=== PATIENT | female | born 1995 | race Caucasian/White ===

== ENCOUNTER 2019-06-09 10:03 | Emergency (ER) | payer OTHER ==
[~2019-06-09] VITALS: Ht 160 cm; Wt 63.5 kg
[2019-06-09] MEDS ORDERED: [UNRECOGNIZED DRUG - OTHER] PO (10:30)
[2019-06-09] MEDS ORDERED: IBUP800 PO (11:20)
[2019-06-09] MEDS ORDERED: HYDR1TAB94 PO (11:20)
[2019-06-09] MEDS ORDERED: CYCL10 PO (11:20)
== END 2019-06-09 11:44 | disposition home or self-care (01) ==
LOC: ER 10:03
DX: M54.5 Low back pain (principal); W11.XXXA Fall on and from ladder, initial encounter
CPT/HCPCS: 72100; 99283-25

== ENCOUNTER 2019-08-26 15:56 | Emergency (ER) | payer OTHER ==
[~2019-08-26] VITALS: Ht 160 cm; Wt 68.0 kg
[~2019-08-26 15:56] MED LIST: CYCL10 PO; HYDR1TAB94 PO; IBUP800 PO; [UNRECOGNIZED DRUG - OTHER] PO
[2019-08-26] MEDS ORDERED: CYCL10 PO (16:03)
[2019-08-26] MEDS ORDERED: Zanaflex4 MG PO (16:04)
[2019-08-26] MEDS ORDERED: Robaxin750 MG PO (16:04)
[2019-08-26] MEDS ORDERED: BUPR150ER PO (16:05)
[2019-08-26] MEDS ORDERED: KETO10 PO (17:18)
== END 2019-08-26 17:33 | disposition home or self-care (01) ==
LOC: ER 15:56
DX: S30.0XXA Contusion of lower back and pelvis, initial encounter (principal); W19.XXXA Unspecified fall, initial encounter
CPT/HCPCS: 72100; 96372; 99283-25; J1885

== ENCOUNTER 2019-12-16 19:09 | Emergency (ER) | payer OTHER ==
[~2019-12-16 19:09] MED LIST changes: +BUPR150ER PO; +KETO10 PO; +Robaxin750 MG PO; +Zanaflex4 MG PO
== END 2019-12-16 20:00 | disposition left against medical advice (07) ==
LOC: ER 19:09
DX: Z53.21 Procedure and treatment not carried out due to patient leaving prior to being seen by health care provider (principal)

== ENCOUNTER 2020-02-29 11:26 | Emergency (ER) | payer OTHER ==
[~2020-02-29] VITALS: Ht 157.5 cm; Wt 59.0 kg
[2020-02-29] MEDS ORDERED: BUPROPION XL150 M1 PO (12:03)
[2020-02-29] MEDS ORDERED: TIZA4 PO (12:04)
[2020-02-29] MEDS ORDERED: OXYC10TA19 PO (12:05)
[2020-02-29] MEDS ORDERED: CLON.1 PO (12:06)
[2020-02-29] MEDS ORDERED: SUBOXONE 8 MG-1 EACH SL (12:06)
[2020-02-29 12:14] LABS: Source, Urine Clean Catch
[2020-02-29 12:29] LABS: Appearance, Urine Hazy (Clear); Blood, Urine 4+ (Neg); Glucose Qualitative, Urine Neg (Neg); Ketones, Urine Neg (Neg); Leukocyte Esterase, Urine 2+ (Neg); Nitrite, Urine Pos (Neg); Protein, Urine 3+ (Neg); Urobilinogen, Urine 3+ (Normal)
[2020-02-29 12:42] LABS: Bilirubin, Urine 3+ (Neg)
[2020-02-29 12:43] LABS: Color, Urine Amber (P-Yellow)
[2020-02-29 12:45] LABS: Bacteria Many /hpf; Squamous Epithelial Cells Mod /hpf (Few); White Blood Cells, Urine 50-100 /hpf (0-5)
[2020-02-29 12:46] LABS: Granular Casts 0-2 /lpf (0)
== END 2020-02-29 12:50 | disposition left against medical advice (07) ==
LOC: ER 11:26
PROVIDERS: Physician Assistant
DX: N12 Tubulo-interstitial nephritis, not specified as acute or chronic (principal); Z20.828 Contact with and (suspected) exposure to other viral communicable diseases; Z79.899 Other long term (current) drug therapy
CPT/HCPCS: 81001; 81025; 87077; 87086; 87186; 99283; U0003

== ENCOUNTER 2020-03-01 20:38 | Inpatient (IN) | payer OTHER ==
[~2020-03-01] VITALS: Ht 157.5 cm; Wt 67.0 kg
[~2020-03-01 20:38] MED LIST changes: +BUPROPION XL150 M1 PO; +CLON.1 PO; +OXYC10TA19 PO; +SUBOXONE 8 MG-1 EACH SL; +TIZA4 PO
[2020-03-01 22:02] LABS: BASOPHILS ABSOLUTE AUTO 0.03 K/mm3 (0.00-0.23); BASOPHILS PERCENT AUTO 0 % (0-2); EOSINOPHILS ABSOLUTE AUTO 0.01 K/mm3 (0.00-0.68); EOSINOPHILS PERCENT AUTO 0 % (0-6); Hemoglobin 11.6 g/dL (11.5-16.0); IMMATURE GRAN ABSOLUTE AUTO 0.13 K/mm3 (0.00-0.10); IMMATURE GRAN PERCENT AUTO 1 % (0-1); LYMPHOCYTES ABSOLUTE AUTO 0.99 K/mm3 (0.84-5.20); LYMPHOCYTES PERCENT AUTO 7 % (21-46); MONOCYTES ABSOLUTE AUTO 1.21 K/mm3 (0.16-1.47); MONOCYTES PERCENT AUTO 8 % (4-13); Mean Corpuscular HGB 30.1 pg (26.0-34.0); Mean Corpuscular HGB Conc 34.1 g/dL (31.5-36.5); Mean Corpuscular Volume 88 fL (80-100); NEUTROPHILS ABSOLUTE AUTO 12.14 K/mm3 (1.96-9.15); NEUTROPHILS PERCENT AUTO 84 % (41-73); RDW Coefficient Variation 12.1 % (11.7-14.2); RDW Standard Deviation 38.9 fL (35.1-46.3); Red Blood Cell Count 3.86 M/mm3 (3.80-5.20); White Blood Cell Count 14.51 K/mm3 (4.00-11.30)
[2020-03-01 22:03] LABS: Mean Platelet Volume 10.9 fL (9.1-12.4); Platelet Count 191 K/mm3 (150-400)
[2020-03-01 22:17] LABS: Alanine Aminotransfer (ALT/SGP 42 U/L (12-78); Albumin, Blood 3.1 g/dL (3.4-5.0); Albumin/Globulin Ratio 0.6 (0.8-1.8); Alk Phos 105 U/L (50-136); Anion Gap 11 mmol/L (6-16); Aspartate Aminotrans (AST/SGOT 58 U/L (12-37); Bilirubin, Total 0.7 mg/dL (0.1-1.0); Blood Urea Nitrogen 11 mg/dL (8-24); Bun/Creatinine Ratio 18.2 (12.0-20.0); CO2, Blood 24 mmol/L (21-32); Calcium, Blood 9.4 mg/dL (8.5-10.1); Chloride, Blood 100 mmol/L (98-108); Glomerular Filtration Rate >60 (60-); Glucose, Blood 128 mg/dL (70-99); Sodium, Blood 135 mmol/L (136-145); Total Protein, Blood 8.1 g/dL (6.4-8.2)
[2020-03-01 22:56] LABS: Source, Urine Clean Catch
[2020-03-01 23:03] LABS: Blood, Urine 4+ (Neg); Glucose Qualitative, Urine Neg (Neg); Ketones, Urine 4+ (Neg); Leukocyte Esterase, Urine 1+ (Neg); Nitrite, Urine Neg (Neg); Protein, Urine 4+ (Neg); Urobilinogen, Urine 3+ (Normal); pH, Urine 6.5 (5.0-8.0)
[2020-03-01 23:05] LABS: Appearance, Urine Hazy (Clear); Bilirubin, Urine 1+ (Neg); Color, Urine Amber (P-Yellow)
[2020-03-01 23:10] LABS: Amorphous Light (0-Heavy); Bacteria Mod /hpf; Mucus Light (0-Heavy); Squamous Epithelial Cells Few /hpf (Few); White Blood Cells, Urine 25-50 /hpf (0-5)
[2020-03-02 04:28] LABS: BASOPHILS ABSOLUTE AUTO 0.03 K/mm3 (0.00-0.23); BASOPHILS PERCENT AUTO 0 % (0-2); EOSINOPHILS ABSOLUTE AUTO 0.01 K/mm3 (0.00-0.68); EOSINOPHILS PERCENT AUTO 0 % (0-6); Hematocrit 27.9 % (33.0-51.0); Hemoglobin 9.1 g/dL (11.5-16.0); IMMATURE GRAN ABSOLUTE AUTO 0.27 K/mm3 (0.00-0.10); IMMATURE GRAN PERCENT AUTO 2 % (0-1); LYMPHOCYTES ABSOLUTE AUTO 2.36 K/mm3 (0.84-5.20); LYMPHOCYTES PERCENT AUTO 20 % (21-46); MONOCYTES ABSOLUTE AUTO 1.45 K/mm3 (0.16-1.47); MONOCYTES PERCENT AUTO 12 % (4-13); Mean Corpuscular HGB 29.5 pg (26.0-34.0); Mean Corpuscular HGB Conc 32.6 g/dL (31.5-36.5); Mean Corpuscular Volume 91 fL (80-100); Mean Platelet Volume 9.9 fL (9.1-12.4); NEUTROPHILS ABSOLUTE AUTO 7.83 K/mm3 (1.96-9.15); NEUTROPHILS PERCENT AUTO 66 % (41-73); Platelet Count 159 K/mm3 (150-400); RDW Coefficient Variation 12.3 % (11.7-14.2); RDW Standard Deviation 40.9 fL (35.1-46.3); Red Blood Cell Count 3.08 M/mm3 (3.80-5.20); White Blood Cell Count 11.95 K/mm3 (4.00-11.30)
--- NOTE | 2020-03-02 05:13 | NUR ---
SHIFT SUMMARY PT DROWSY SINCE ARRIVAL TO UNIT, PT AWAKENS MORE EASILY THIS AM. PT REPORTING FLANK PAIN BILATERALLY X4-6 DAYS, DECREASED LAST 24HRS. IV BOLUSES INFUSING PER ORDERS + MAINTENANCE IVF ORDERS TO FOLLOW. PT ORIENTED TO ROOM + CALL LIGHT USE. PT CURRENTLY RESTING IN BED WITH CALL LIGHT IN REACH, BED ALARM ON FOR SAFETY.
--- NOTE | 2020-03-02 11:19 | NUR ---
CONT. TO C/O MIGRAINE H/A AND NAUSEA W/ DRY HEAVES AFTER MEDICATED W/ ZOFRAN AND TYLENOL THIS AM, DR. ROJAS NOTIFIED, TORADOL AND PHENERGAN GIVEN ORDERED, CONT. TO MONITOR.
--- NOTE | 2020-03-02 15:08 | NUR ---
REPORTS H/A IS "A LITTLE BETTER BUT IT STILL HURTS" BP 175/115 HR 82, DR. ROJAS NOTIFIED, SL'D IV, IMITREX ORDERED, CONT. TO MONITOR.
--- NOTE | 2020-03-02 17:40 | NUR ---
SUMMARY PT C/O MIGRAINE H/A AND NAUSEA ALL DAY, HAD SOME DRY HEAVES AND EMESIS, PT FINALLY HAD RELIEF WTIH IMITREX AND PHENERGAN, PT HAS BEEN UNABLE TO KEEP ANY FOOD DOWN, HAS BEEN ON SIPS OF CLEAR LIQUIDS ALL DAY, DR. ROJAS AWARE, ELEVATED BP THIS AFTERNOON, DR. ROJAS ORDERED LABETALOL PRN, CONT. TO REPORT SOME LOWER BACK PAIN BUT STATES 'IT'S NOT BAD THE H/A" RATES H/A CURRENTLY AT 5/10, TOLERATING SOME ICE CHIPS, NO OTHER CHANGES THIS SHIFT.
[2020-03-03 04:37] LABS: BASOPHILS ABSOLUTE AUTO 0.03 K/mm3 (0.00-0.23); BASOPHILS PERCENT AUTO 0 % (0-2); EOSINOPHILS ABSOLUTE AUTO 0.06 K/mm3 (0.00-0.68); EOSINOPHILS PERCENT AUTO 0 % (0-6); Hemoglobin 10.4 g/dL (11.5-16.0); IMMATURE GRAN ABSOLUTE AUTO 0.05 K/mm3 (0.00-0.10); IMMATURE GRAN PERCENT AUTO 0 % (0-1); LYMPHOCYTES ABSOLUTE AUTO 2.47 K/mm3 (0.84-5.20); LYMPHOCYTES PERCENT AUTO 18 % (21-46); MONOCYTES ABSOLUTE AUTO 1.43 K/mm3 (0.16-1.47); MONOCYTES PERCENT AUTO 10 % (4-13); Mean Corpuscular HGB 29.7 pg (26.0-34.0); Mean Corpuscular HGB Conc 33.5 g/dL (31.5-36.5); Mean Corpuscular Volume 89 fL (80-100); Mean Platelet Volume 9.8 fL (9.1-12.4); NEUTROPHILS ABSOLUTE AUTO 9.71 K/mm3 (1.96-9.15); NEUTROPHILS PERCENT AUTO 71 % (41-73); Platelet Count 240 K/mm3 (150-400); RDW Coefficient Variation 12.5 % (11.7-14.2); RDW Standard Deviation 40.8 fL (35.1-46.3); White Blood Cell Count 13.75 K/mm3 (4.00-11.30)
[2020-03-03 05:02] LABS: Albumin, Blood 2.7 g/dL (3.4-5.0); Anion Gap 9 mmol/L (6-16); Blood Urea Nitrogen 4 mg/dL (8-24); Bun/Creatinine Ratio 8.7 (12.0-20.0); CO2, Blood 28 mmol/L (21-32); Calcium, Blood 8.5 mg/dL (8.5-10.1); Chloride, Blood 100 mmol/L (98-108); Creatinine, Blood 0.46 mg/dL (0.40-1.00); Glomerular Filtration Rate >60 (60-); Glucose, Blood 106 mg/dL (70-99); Potassium, Blood 2.7 mmol/L (3.5-5.5); Sodium, Blood 137 mmol/L (136-145)
--- NOTE | 2020-03-03 06:02 | NUR ---
PT T-MAX 100.6, BP REMAINED ELEVATED BUT BELOW PRN PARAMETERS. HR UP TO 130 W/AMBULATION THIS AM; PT DENIED CP/PRESSURE. PT CONT TO C/O LOWER BACK AND LOW ABD PAIN. PT CONT TO C/O NAUSEA, NO EMESIS THIS SHIFT, PO INTAKE MINIMAL, ONLY A FEW SIPS OF SPRITE. PT DENIES PAIN W/VOID. NEW ORDER FOR IV KCL AND IVF THIS AM.
--- NOTE | 2020-03-03 17:34 | NUR ---
SUMMARY CONT. TO HAVE H/A, LOWER ABD PAIN AND NAUSEA TODAY, NO EMESIS NOTED TODAY, PT TOOK A SHOWER AND AMBULATED DOWN THE [place], STILL NOT TOLERATING MUCH FOOD, HAD SOME RODRIGUEZ CRACKERS THIS AM, SLEPT MOST OF THE DAY, NO ACUTE CHANGES THIS SHIFT.
--- NOTE | 2020-03-04 07:15 | NUR ---
recvd report from previous shift RN Swathi, pt sleeping in bed, bed in lowest position, bed rails up x 2, call light within reach
--- NOTE | 2020-03-04 07:29 | NUR ---
PT BP ELEVATED, BELOW PRN PARAMETERS, HR WNL. PT REP LESS NAUSEA AND PAIN THIS SHIFT, JUDY SIPS OF CLEARS. PT DENEIS PAIN W/VOID, CONT TO REP BACK PAIN. PT CONT TO C/O HEADACHE AND DOES HAVE NASAL CONGESTION. PT DENIES DIZZINESS WHEN UP.
[2020-03-04 09:08] LABS: Albumin, Blood 2.7 g/dL (3.4-5.0); Anion Gap 6 mmol/L (6-16); Blood Urea Nitrogen 7 mg/dL (8-24); Bun/Creatinine Ratio 14.1 (12.0-20.0); CO2, Blood 30 mmol/L (21-32); Chloride, Blood 104 mmol/L (98-108); Glomerular Filtration Rate >60 (60-); Glucose, Blood 99 mg/dL (70-99); Phosphorus, Blood 3.1 mg/dL (2.5-4.9); Potassium, Blood 3.2 mmol/L (3.5-5.5); Sodium, Blood 140 mmol/L (136-145)
--- NOTE | 2020-03-04 09:40 | NUR ---
dr watts rounding on pt
--- NOTE | 2020-03-04 17:01 | NUR ---
shift summary: vss stable, no acute changes. Pt remained slightly nauseous, no vomiting, denies having "much of an appetite", PO intake decreased, encouraged pt to eat as much as tolerated. pt showered today, encouraged to sit in steamy shower to assist in clearing nasal congestion which pt reports did improve. pt independent in room, voiding, no BM reported this shift, BT active. pt appears to be sleeping at several nurse roundings. pt refused IV piggyback potassium, received PO potassium instead.
--- NOTE | 2020-03-05 04:25 | NUR ---
DR NOTIFIED OF ELEVATED BP DR MARTINEZ NOTIFIED AT THIS TIME R/T TO PT'S ELEVATED BP'S, SEE VITALS SIGNS. NEW ORDER FOR 10MG HYDRALAZINE PO OBTAINED. WILL ADMINISTER MEDICATION ORDERED AND CONT TO MONITOR PT FOR CHANGES.
--- NOTE | 2020-03-05 06:24 | NUR ---
SHIFT SUMMARY PT A/OX4 AND IND IN ROOM. JUDY CL, MEDICATED FOR NAUSEA X1. BP CONTINUES TO BE ELEVATED, MEDICATED PER ORDERS AND DOCTOR NOTIFIED- SEE PREVIOUS NOTE. PT APPEARS TO HAVE SLEEP T/O MOST OF SHIFT. DENIED DYSURIA OR NEED FOR PAIN MEDICATION. ABX/IVF INFUSING PER ORDERS. PT RESTING IN BED AT THIS TIME WITH CALL LIGHT IN REACH. WILL CONT TO MONITOR AND GIVE REPORT TO ONCOMING RN.
[2020-03-05 09:04] LABS: BASOPHILS ABSOLUTE AUTO 0.05 K/mm3 (0.00-0.23); BASOPHILS PERCENT AUTO 1 % (0-2); EOSINOPHILS ABSOLUTE AUTO 0.26 K/mm3 (0.00-0.68); EOSINOPHILS PERCENT AUTO 3 % (0-6); Hemoglobin 10.4 g/dL (11.5-16.0); IMMATURE GRAN ABSOLUTE AUTO 0.05 K/mm3 (0.00-0.10); IMMATURE GRAN PERCENT AUTO 1 % (0-1); LYMPHOCYTES ABSOLUTE AUTO 2.55 K/mm3 (0.84-5.20); LYMPHOCYTES PERCENT AUTO 29 % (21-46); MONOCYTES ABSOLUTE AUTO 0.55 K/mm3 (0.16-1.47); MONOCYTES PERCENT AUTO 6 % (4-13); Mean Corpuscular HGB 29.5 pg (26.0-34.0); Mean Corpuscular HGB Conc 32.5 g/dL (31.5-36.5); Mean Corpuscular Volume 91 fL (80-100); Mean Platelet Volume 9.1 fL (9.1-12.4); NEUTROPHILS ABSOLUTE AUTO 5.47 K/mm3 (1.96-9.15); NEUTROPHILS PERCENT AUTO 61 % (41-73); Platelet Count 453 K/mm3 (150-400); RDW Coefficient Variation 12.9 % (11.7-14.2); RDW Standard Deviation 43.2 fL (35.1-46.3); Red Blood Cell Count 3.53 M/mm3 (3.80-5.20); White Blood Cell Count 8.93 K/mm3 (4.00-11.30)
[2020-03-05 09:28] LABS: Albumin, Blood 2.7 g/dL (3.4-5.0); Anion Gap 8 mmol/L (6-16); Blood Urea Nitrogen 6 mg/dL (8-24); Bun/Creatinine Ratio 10.9 (12.0-20.0); CO2, Blood 28 mmol/L (21-32); Calcium, Blood 9.2 mg/dL (8.5-10.1); Chloride, Blood 106 mmol/L (98-108); Creatinine, Blood 0.55 mg/dL (0.40-1.00); Glomerular Filtration Rate >60 (60-); Glucose, Blood 108 mg/dL (70-99); Phosphorus, Blood 3.2 mg/dL (2.5-4.9); Potassium, Blood 3.2 mmol/L (3.5-5.5); Sodium, Blood 142 mmol/L (136-145)
[2020-03-05] MEDS ORDERED: CYCL10 PO (14:37)
[2020-03-05] MEDS ORDERED: MICROZIDE12.5 MG PO (14:38)
[2020-03-05] MEDS ORDERED: IBUP400 PO (14:40)
[2020-03-05] MEDS ORDERED: CEFP200 PO (14:41)
--- NOTE | 2020-03-05 15:35 | NUR ---
PATIENT D/C'D HOME AT THIS TIME VIA TAXI TO P/U HER AUTO FROM [employer] [facility]. PATIENT VOIDING W/O C/O. TOLERATING PO. BP MED GIVEN BEFORE D/C PER DR ROJAS'S ORDER. RX CALLED TO [facility]. PATIENT STATES UNDERSTANDING OF MEDS, DIET, F/U APPT, ETC. NO C/O AT THIS TIME.
== END 2020-03-05 15:35 | disposition home or self-care (01) | DRG 872 ==
LOC: ER 20:38 → SURS 23:47
PROVIDERS: Emergency Medicine; Internal Medicine; ADMIT Hospitalist
DX: A41.51 Sepsis due to Escherichia coli [E. coli] (principal); N10 Acute pyelonephritis; G43.909 Migraine, unspecified, not intractable, without status migrainosus; I10 Essential (primary) hypertension; M54.9 Dorsalgia, unspecified
CPT/HCPCS: 36415; 74176; 76830; 76856; 80053; 80069; 81001; 83605; 83690; 85025; 87040; 87086; 96361; 96365; 96375; 99285-25; A9270; A9270-GY; J0696; J1200; J1885; J2405; J2550; J2765; J3480; J7030; J7050